=== PATIENT | female | born 1955 | race Caucasian/White ===

== ENCOUNTER 2018-11-09 05:46 | Day surgery (SDC) | payer MEDICARE, OTHER ==
[2018-11-09] MEDS ORDERED: DEXAMETHASONE INJ 10 MG/ML VIAL ONE (07:00)
[2018-11-09] MEDS ORDERED: LIDOCAINE 1% 10 ML VIAL INJ ONE (07:00)
[2018-11-09] MEDS ORDERED: KETOROLAC TROMETHAMINE INJ 30 MG/ML VIAL ONE (07:00)
[2018-11-09] MEDS ORDERED: PROPOFOL 200 MG/20 ML VIAL IV ONE (07:00)
[2018-11-09] MEDS ORDERED: METOCLOPRAMIDE HCL INJ 10 MG/2 ML VIAL ONE (07:00)
[2018-11-09] MEDS ORDERED: raNITIdine HCL INJ 25 MG/ML VIAL ONE (07:00)
[2018-11-09] MEDS ORDERED: LACTATED RINGERS 1,000 ML ONE (13:28)
[2018-11-09] MEDS ORDERED: BUPIVACAINE 0.5% W/EPI 30 ML VIAL INJ ONE (13:49)
[2018-11-09] MEDS ORDERED: LACTATED RINGERS 1,000 ML IVS ONE (14:15)
[2018-11-09] MEDS ORDERED: KETAMINE HCL 100 MG/ML VIAL ONE (15:07)
[2018-11-09] MEDS ORDERED: MIDAZOLAM INJ 2 MG/2 ML VIAL ONE (15:08)
[2018-11-09] MEDS ORDERED: ROCURONIUM BROMIDE 10 MG/ML VIAL ONE (15:08)
[2018-11-09] MEDS ORDERED: fentaNYL CITRATE INJ 50 MCG/ML AMP ONE ×2 (15:08→15:41)
[2018-11-09] MEDS ORDERED: SUGAMMADEX SODIUM 200 MG/2 ML VIAL IV ONE (15:56)
[2018-11-09] MEDS ORDERED: HYDROcodone 5MG/APAP 325MG 1 EA TAB ONE (16:51)
[2018-11-09 18:09] VITALS: BP 175/76; TEMP 96.7; O2SAT 99
--- NOTE | 2018-11-10 07:57 | OP ---
DATE OF PROCEDURE: 11/09/18 PREOPERATIVE DIAGNOSIS: 1. Symptomatic cholelithiasis. POSTOPERATIVE DIAGNOSIS: 1. Symptomatic cholelithiasis. PROCEDURE: 1. Laparoscopic cholecystectomy with intraoperative cholangiogram. SURGEON: Paul Polanco MD. ANESTHESIA: General and local. FINDINGS: Normal anatomy. Cholangiogram revealed free flow throughout throughout the entire system into the duodenum without filling defect. The gallbladder had stones. COMPLICATIONS: None. ESTIMATED BLOOD LOSS: Minimal. SPECIMEN: Gallbladder. CONDITION: Stable. PLAN: Discharge. INDICATION: As stated. PROCEDURE: General anesthesia was induced. The patient was prepped and draped. Marcaine 0.5% with epinephrine was used at all incision sites while maintaining upward traction. A emiliana was made near the base of the umbilicus. Veress needle was introduced. There was free flow of fluid into the peritoneal cavity which was insufflated to an appropriate level with CO2 gas. The 5 mm trocar was placed followed by the camera. There was no evidence of bleeding or bowel injury and no adhesions inferiorly. The patient was positioned and subxiphoid and lateral ports were placed under direct visualization without difficulty. The gallbladder fundus was grasped and retracted superiorly and laterally. The infundibulum was grasped. The infundibular structures were dissected free. The duct and artery were clearly visualized through the triangle of Calot. A clip was placed on the proximal duct and ductotomy performed. The cholangiocatheter was introduced. The cholangiogram revealed the above normal findings. The catheter was removed. Three clips were placed on the distal duct. The duct was ligated and the artery triply ligated as was a small posterior branch with one clip. The gallbladder was then dissected off the fossa in toto and removed in the EndoCatch bag. The fossa was examined. It remained hemostatic. The clips were intact. There was no bleeding or bile leak. The area was irrigated and aspirated. All aspirate was clear. The subxiphoid fascia was then closed with 0 Vicryl using the suture passer. It was airtight and non-bleeding. The remaining trocars were removed. There was no bleeding from the trocar sites. The wounds were irrigated and closed with Monocryl. Dressings were applied. The patient was awakened and taken to Recovery to be discharged. #[id number] cc: Jevon Abarca MD [facility]ITALPrachi
--- NOTE | 2018-11-10 16:02 | RAD ---
PROVIDED CLINICAL HISTORY/REASON FOR EXAM: IOC Findings/impression: One intraoperative fluoroscopic cholangiogram image. No stone or stricture identified. Dose: Not documented Time: Four seconds Electronically signed by: Drew Carlos MD 11/10/2018 4:01 PM CDT
== END 2018-11-09 18:00 | disposition home or self-care (01) ==
LOC: AMB 05:46
PROVIDERS: ATTEND Surgery
DX: K80.10 Calculus of gallbladder with chronic cholecystitis without obstruction (principal); E89.0 Postprocedural hypothyroidism; Z88.5 Allergy status to narcotic agent; Z88.7 Allergy status to serum and vaccine; Z90.710 Acquired absence of both cervix and uterus; Z79.899 Other long term (current) drug therapy
CPT/HCPCS: 00790; 36415; 47563; 76000; 80048; 85025; 88304; 93005; J1100; J1885; J2250; J2765; J2780; J3010; J3490; J7120